=== PATIENT | male | born 2000 | race Hispanic/Latino ===

== ENCOUNTER 2024-08-06 00:57 | Emergency (ER) | payer BC ==
[2024-08-06] MEDS: Benzonatate 100 MG Cap PO ONE (02:25)
[2024-08-06] MEDS: Azithromycin 250 MG Tab PO STA (02:25)
== END 2024-08-06 02:28 | disposition home or self-care (01) ==
LOC: MW.ED 00:57
DX: J18.9 Pneumonia, unspecified organism (principal); Z75.3 Unavailability and inaccessibility of health-care facilities; F17.200 Nicotine dependence, unspecified, uncomplicated
CPT/HCPCS: 71046; 87428; 99285; A9270; 99283

== ENCOUNTER 2025-02-09 16:22 | Emergency (ER) | payer BC | END 2025-02-09 19:13 | disposition home or self-care (01) | LOC: MW.ED 16:22 | DX: S93.401A Sprain of unspecified ligament of right ankle, initial encounter (principal); Y93.54 Activity, bowling; Z59.82 Transportation insecurity; X50.1XXA Overexertion from prolonged static or awkward postures, initial encounter; Z75.3 Unavailability and inaccessibility of health-care facilities | CPT/HCPCS: 73610; 99283; A9270 ==